=== PATIENT | female | born 1970 | race Caucasian/White ===

== ENCOUNTER 2023-06-29 19:05 | Emergency (ER) | payer SELFPAY ==
[2023-06-29] MEDS ORDERED: SODIUM CHLORIDE 1,000 ML IV SCH (19:15)
[2023-06-29 19:35] LABS: HEMATOCRIT 46.2 % (32.4-45.2); HEMOGLOBIN 15.7 G/dL (10.7-15.3); MCHC 33.9 g/dl (32.0-36.0); MEAN CELL VOLUME 91.5 fl (80-96); MEAN PLT VOLUME 7.6 fl (7.5-11.1); PLATELET COUNT 239.2 10^3/uL (134-434); RBC 5.05 10^6/uL (3.60-5.2); RDW 13.9 % (11.6-15.6); WHITE BLOOD COUNT 7.8 10^3/uL (4.0-10.8)
[2023-06-29 19:43] LABS: INR 1.1 (0.83-1.09); PROTHROMBIN TIME (PATIENT) 12.7 SEC (9.7-13.0)
[2023-06-29 19:45] LABS: ACTIVATED PTT 27.8 SECONDS (25.2-36.5)
[2023-06-29 19:53] LABS: PLATELET ESTIMATE ADEQUATE
[2023-06-29 19:56] LABS: ALBUMIN 4.4 g/dl (3.4-5.0); BILIRUBIN,TOTAL 0.6 mg/dl (0.2-1); CALCIUM 9.5 mg/dl (8.5-10.1); CREATININE 0.6 mg/dl (0.6-1.3); POTASSIUM 3.4 mmol/L (3.5-5.1); TOT PROT 6.5 g/dl (6.4-8.2)
[2023-06-29 20:11] VITALS: BMI 22.7
[2023-06-29 20:31] VITALS: TEMP 99.1
[2023-06-29 21:38] VITALS: BP 136/74; RESP 21
[2023-06-29 22:15] VITALS: PULSE 67
== END 2023-06-29 22:15 | disposition short-term general hospital (02) ==
LOC: FER 19:05
DX: R51.9 Headache, unspecified (principal); I61.9 Nontraumatic intracerebral hemorrhage, unspecified; U07.1 COVID-19
CPT/HCPCS: 0241U-QW; 36415; 70450-TC; 80053; 80061; 82550; 83036; 84484; 85025; 85610; 85730; 93005; 99291